=== PATIENT | female | born 1990 | race American Indian/Alaskan Native ===

== ENCOUNTER 2018-01-23 19:59 | Emergency (ER) | payer OTHER, MEDICAID ==
[2018-01-23] MEDS ORDERED: Ibuprofen 600 MG Tab PO ONE (20:00)
[2018-01-23] MEDS ORDERED: Ketorolac 30 MG/ML SDV IM ONE (20:32)
--- NOTE | 2018-01-23 20:32 | EDM.PDOC ---
ED HPI GENERAL MEDICAL PROBLEM - General Chief Complaint: Back Pain or Injury Stated Complaint: [id number] HURT BACK- WC Time Seen by Provider: 01/23/18 20:32 Source of Information: Reports: Patient History Limitations: Reports: No Limitations - History of Present Illness INITIAL COMMENTS - FREE TEXT/NARRATIVE: ED with c/o low back pain worse with movement, and unrelieved with tylenol Reports injury to back while lifting a " cleaning supply box at work this am and twisted while turning to go upstairs. Pain worsening after lying down this afternoon. No numbness. Denies hx of back injury. 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 ED EXAM,LOWER BACK PAIN/INJURY - Physical Exam Exam: See Below Exam Limited By: No Limitations General Appearance: Alert, Moderate Distress (crying), Obese Eye Exam: Bilateral Eye: EOMI Ears: Normal External Exam Nose: Normal Inspection Throat/Mouth: Normal Inspection, Normal Voice Head: Atraumatic, Normocephalic Neck: Normal Inspection, Full Range of Motion Respiratory/Chest: No Respiratory Distress, Lungs Clear, Normal Breath Sounds Cardiovascular: Normal Peripheral Pulses, Regular Rate, Rhythm GI/Abdominal: Soft Back Exam: Full Range of Motion, Muscle Spasm (lumbar increase pain with movement), Paraspinal Tenderness. No: Vertebral Tenderness Extremities: Normal Inspection, Normal Range of Motion. No: Pedal Edema Neurological: Alert, Normal Mood/Affect, Normal Reflexes, Oriented x 3, Straight Leg Raise (L). No: Abnormal Sensation, Straight Leg Raise (R), Saddle Anesthesia, Difficulty Walking DTR - Lower Extremities: 2+: Knee (R), Knee (L) Psychiatric: Normal Affect, Tearful Skin Exam: Warm, Dry, Intact Course - Vital Signs Last Recorded V/S: Last Vital Signs Temp 97.5 F 01/23/18 20:06 Pulse 82 01/23/18 20:06 Resp 16 01/23/18 20:06 BP 137/81 01/23/18 20:06 Pulse Ox 99 01/23/18 20:06 - Orders/Labs/Meds Meds: Medications Discontinued Medications Generic Name Dose Route Start Last Admin Trade Name Benjie PRN Reason Stop Dose Admin Ketorolac Tromethamine 30 mg 01/23/18 20:32 01/23/18 20:41 Toradol IM 01/23/18 20:33 30 mg ONETIME ONE Administration Orphenadrine Citrate 60 mg 01/23/18 20:33 01/23/18 20:40 Norflex IM 01/23/18 20:34 60 mg ONETIME ONE Administration Departure - Departure Time of Disposition: 21:16 Disposition: Home, Self-Care 01 Condition: Good Clinical Impression: Back pain - Discharge Information Instructions: Back Pain, Adult, [id number], Muscle Strain, [id number], Back Injury Prevention, [id number] Referrals: PCP,None [Primary Care Provider] - Forms: ED Department Discharge Additional Instructions: rest light activity follow up with primary care if not improving ibuprofen 600mg one every 6 hours x 2 days then every 6 hours as needed for back pain
[2018-01-23] MEDS ORDERED: Ibuprofen 600 MG Tab ONE (21:19)
== END 2018-01-23 21:28 | disposition home or self-care (01) ==
LOC: DL.ED 19:59
DX: M54.5 Low back pain (principal); K21.9 Gastro-esophageal reflux disease without esophagitis; F41.9 Anxiety disorder, unspecified; F32.9 Major depressive disorder, single episode, unspecified; F17.210 Nicotine dependence, cigarettes, uncomplicated; Z88.1 Allergy status to other antibiotic agents
CPT/HCPCS: 96372; 99283; A9270-GY; J1885; J2360

== ENCOUNTER 2019-01-18 04:55 | Emergency (ER) | payer MEDICAID ==
[2019-01-18 04:48] LABS: ANION GAP 12.3; CHLORIDE,CL 107 mmol/L (101-111); SODIUM,NA 138 mmol/L (135-145)
[~2019-01-18 04:55] MED LIST: Diphtheria,Pertussis(Acell),Tetanus Vaccine 0.5 ML SDV IM ONE; Ertapenem 1 GM Vial ONE; Ertapenem 1 GM in Sodium Chloride 0.9% 50 ML IV ONE; HYDROmorphone 1 MG/ML Syringe IVPUSH ONE; Iopamidol 612 MG/ML 100 ML Bottle IVPUSH ONE
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
== END 2019-01-18 05:31 ==
LOC: DL.ED 04:55
DX: S31.139A Puncture wound of abdominal wall without foreign body, unspecified quadrant without penetration into peritoneal cavity, initial encounter (principal); S31.030A Puncture wound without foreign body of lower back and pelvis without penetration into retroperitoneum, initial encounter; Z23 Encounter for immunization; Z88.1 Allergy status to other antibiotic agents; W32.0XXA Accidental handgun discharge, initial encounter
CPT/HCPCS: 36415; 71260; 74177; 80053; 80305; 81001; 81025; 85025; 85730; 87086; 90471; 90715; 96374; 96375; 99285; J1170; J1335; J7050; Q9967; 87088; 87186

== ENCOUNTER → 2019-06-27 | Emergency (ER) | payer MEDICAID | LOC: DL.ED 15:26 | DX: Z53.21 Procedure and treatment not carried out due to patient leaving prior to being seen by health care provider (principal) ==

== ENCOUNTER 2023-04-05 22:00 | Emergency (ER) | payer SELFPAY ==
[2023-04-05] MEDS ORDERED: Ketorolac 30 MG/ML SDV IM ONE (22:14)
== END 2023-04-05 23:10 ==
LOC: DL.ED 22:00
DX: S60.211A Contusion of right wrist, initial encounter (principal); Z88.0 Allergy status to penicillin; Z88.1 Allergy status to other antibiotic agents; W01.0XXA Fall on same level from slipping, tripping and stumbling without subsequent striking against object, initial encounter
CPT/HCPCS: 73110; 96372; 99283; J1885